=== PATIENT | male | born 1980 | race Asian ===

== ENCOUNTER 2017-06-06 09:00 | Emergency (ER) | payer SELFPAY ==
[2017-06-06 09:10] VITALS: BP 125/69
[2017-06-06] MEDS ORDERED: HYDROcodone/ACETAMIN 5-325 MG* 1 TAB PO ONE (09:17)
--- NOTE | 2017-06-06 09:57 | UC ---
Hip/Pelvis Pain - HPI Summary HPI Summary: has been running daily (about 5 miles) for the past 4 days he has had worsening left hip pain--difficult to weight bear - History Of Current Complaint Chief Complaint: UCLowerExtremity Stated Complaint: HIP INJURY Time Seen by Provider: 06/06/17 09:13 Hx Obtained From: Patient Mechanism Of Injury: repeatitive stress Onset/Duration: Gradual Onset, Lasting Days - 4, Still Present Timing: Constant Severity Initially: Moderate Severity Currently: Moderate Pain Intensity: 8 Pain Scale Used: 0-10 Numeric Location: Discrete At: - left hip Character Of Pain: Aching, Throbbing Aggravating Factor(s): Movement, Weight Bearing Alleviating Factor(s): Nothing Associated Signs And Symptoms: Positive: Negative - Allergies/Home Medications Allergies/Adverse Reactions: Allergies Allergy/AdvReac Type Severity Reaction Status Date / Time No Known Allergies Allergy Verified 06/06/17 09:10 PMH/Surg Hx/FS Hx/Imm Hx Previously Healthy: No - herion overdose,respiratory failure - Surgical History Surgical History: None - Family History Known Family History: Positive: Unknown, Hypertension - Father, Diabetes - Father Negative: Cardiac Disease - Social History Occupation: Unemployed Lives: With Family Alcohol Use: None Substance Use Type: Heroin Substance Use Comment - Amount & Last Used: past user, 2 years clean Smoking Status (MU): Heavy Every Day Tobacco Smoker Type: Cigarettes Amount Used/How Often: 1/2 ppd Length of Time of Smoking/Using Tobacco: since age 18 Cessation Counseling: Patient Advised to Stop - Immunization History Most Recent Influenza Vaccination: none Most Recent Tetanus Shot: unknown Most Recent Pneumonia Vaccination: none Review of Systems Constitutional: Negative Skin: Negative Eyes: Negative ENT: Negative Respiratory: Negative Cardiovascular: Negative Gastrointestinal: Negative Genitourinary: Negative Motor: Negative Neurovascular: Negative Musculoskeletal: Arthralgia - left hip Neurological: Negative Psychological: Negative All Other Systems Reviewed And Are Negative: Yes Physical Exam Triage Information Reviewed: Yes Appearance: Well-Appearing, Well-Nourished, Pain Distress Vital Signs: Initial Vital Signs Temp 99.5 F 06/06/17 09:04 Pulse 59 06/06/17 09:04 Resp 14 06/06/17 09:04 BP 125/69 06/06/17 09:04 Pulse Ox 98 06/06/17 09:04 Vital Signs Reviewed: Yes Eye Exam: Normal Eyes: Positive: Conjunctiva Clear ENT Exam: Normal ENT: Positive: Normal ENT inspection, Hearing grossly normal. Negative: Nasal congestion, Nasal drainage, Trismus, Muffled/hoarse voice Dental Exam: Normal Neck exam: Normal Neck: Positive: Supple, Nontender, No Lymphadenopathy Respiratory Exam: Normal Respiratory: Positive: Chest non-tender, Lungs clear, Normal breath sounds, No respiratory distress, No accessory muscle use Cardiovascular Exam: Normal Cardiovascular: Positive: RRR, No Murmur, Pulses Normal, Brisk Capillary Refill Musculoskeletal Exam: Normal Musculoskeletal: Positive: Strength Limited @ - left leg Neurological Exam: Normal Neurological: Positive: Alert, Muscle Tone Normal Psychological Exam: Normal Psychological: Positive: Normal Response To Family, Age Appropriate Behavior Skin Exam: Normal Diagnostics - Radiology No standard instances Xray Interpretation: No Acute Changes Radiology Interpretation Completed By: Radiologist Hip Injury Course/Dx - Course Course Of Treatment: Crutches, Nsaids, Physical therapy, sports medicine this week, refil MDI Albuterol - Differential Dx/Diagnosis Differential Diagnosis/HQI/PQRI: Bursitis, Infection, Sciatica, Sprain, Strain Provider Diagnoses: Left hip bursitis, mild intermittent asthma Discharge - Discharge Plan Condition: Stable Disposition: HOME Prescriptions: Albuterol HFA INHALER* [Ventolin HFA Inhaler*] 2 puff INH Q4H PRN #1 mdi PRN Reason: cough, wheeze, sob Ibuprofen TAB* [Motrin TAB* 600 MG] 600 mg PO Q6H PRN #30 tab PRN Reason: pain Patient Education Materials: How to Stop Smoking (ED), Crutch Instructions (ED) , Hip Bursitis (ED) Referrals: Francisca Humphries MD [Medical Doctor] - 5 Days
--- NOTE | 2017-06-06 10:10 | RAD ---
INDICATION: Left hip pain. COMPARISON: There are no prior studies available for comparison. TECHNIQUE: An AP view of the pelvis and frontal and lateral views of the left hip were obtained. FINDINGS: The bones are in normal alignment. No fracture is seen. There is mild bilateral osteoarthritic change in the hips. IMPRESSION: MILD BILATERAL OSTEOARTHRITIC CHANGE IN THE HIPS.
== END 2017-06-06 10:55 | disposition home or self-care (01) ==
LOC: UCEAST 09:00
DX: M70.72 Other bursitis of hip, left hip (principal); Y93.02 Activity, running
CPT/HCPCS: 99213; G0463

== ENCOUNTER 2017-06-26 14:27 | Observation (INO) | payer OTHER ==
--- NOTE | 2017-06-26 03:43 | HP ---
PREOPERATIVE HISTORY AND PHYSICAL DATE OF ADMISSION/SURGERY: 06/26/2017 DATE OF OFFICE VISIT: 06/25/2017 ATTENDING SURGEON: Chele Huynh MD * (DICTATED BY YENNY MATIAS) PROCEDURE: Left hip percutaneous pinning. CHIEF COMPLAINT: Left hip pain. HISTORY OF PRESENT ILLNESS: Mr. Barrientos is a 36-year-old male who presents to the clinic with left hip femoral neck stress fracture. He is having pain in his left hip for 1 month that started when he began running again. He was running and sprained his ankle; therefore, changed the gait of his left hip for several weeks. He was seen at [facility] where x-rays were performed and revealed no fracture. He was diagnosed with bursitis. He then went to [facility] and had significant increase in pain with walking all day. He was seen by Dr. Humphries where x-rays revealed a stress fracture. He is taking oxycodone 5 mg 2 pills 3x a day for the pain. He reports an 8 out of 10 constant aching pain deep in the hip. He has been nonweightbearing with use of crutches. The pain is worse with weightbearing or turning of the leg. He reports no prior injury to the hip. He denies numbness, tingling, fever or chills. PAST MEDICAL HISTORY: Diabetes type 2, anxiety, depression, PTSD and history of drug and alcohol abuse. PAST SURGICAL HISTORY: No prior surgeries. MEDICATIONS: 1. Duloxetine 60 mg 1 by mouth every day. 2. Oxycodone 5 mg every 4 to 6 hours as needed. 3. Alprazolam 1 mg 1 by mouth 1 hour before procedures. ALLERGIES: No known drug allergies. FAMILY HISTORY: Positive for diabetes on the paternal side and stroke. SOCIAL HISTORY: He lives with his parents. He is currently is not working. He reports current tobacco use 1/2 pack per day x15 years. He denies alcohol consumption. He exercises regularly. He is right hand dominant. REVIEW OF SYSTEMS: Denies fevers, chills, or night sweats. No known anesthesia problems. HEENT: Negative for headache, lightheadedness, or syncopal episodes. Integumentary: Negative for abrasions, lesions, or open wounds. Cardiothoracic: Negative for chest pain, palpitations or edema. Negative for hypertension. Pulmonary: Negative for shortness of breath with exertion, chronic cough, or COPD. GI: Negative for nausea, vomiting, diarrhea, constipation, or GERD. : Negative for nocturia, history of UTIs or kidney problems. Musculoskeletal: Positive for the current complaint. Neuro: Negative for numbness, tingling, history of seizure, stroke, or epilepsy. Endocrine: Positive for diabetes. Denies thyroid issues. Heme: Negative for easy bruising, history of bleeding disorder, history of DVT or PE. Infectious Disease: Negative for history of MRSA, hep C, or HIV. PHYSICAL EXAMINATION GENERAL: Well-developed, well-nourished, 36-year-old male, in no acute distress. Alert and oriented x3. Appropriate mood and affect. VITAL SIGNS: Height 66, weight 173 pounds, pulse 74, blood pressure 138/90, temperature 97.9, BMI 27.9. HEENT: Normocephalic, atraumatic. PERRLA. Throat: Clear. NECK: Supple. PULMONARY: Lungs are clear to auscultation bilaterally. No wheezing, rhonchi, or rales. CARDIO: Regular rate and rhythm. S1, S2. No murmurs, gallops or rubs. No edema. ABDOMEN: Positive bowel sounds, soft, and nontender. NEURO: Alert and oriented x3. Cranial nerves grossly intact. Sensation is intact to light touch. MUSCULOSKELETAL: Left Lower Extremity: Unable to weight bear on the left lower extremity, uses crutches for assistance with ambulation. The skin is intact. No warmth or erythema, or ecchymosis. The hip is nontender to palpation. He is able to flex the hip to 90 degrees without pain. Pain with internal and external rotation. The calf is soft, nontender, full pain free range of motion of the knee. 5/5 strength in dorsiflexion, plantar flexion. +2 dorsalis pedis pulses. Sensation intact to light touch distally. Right Lower Extremity: Skin is intact with no warmth or erythema. Nontender to palpation. Full pain free range of motion of the hip. +2 dorsalis pedis pulses. Sensation intact to light touch distally. DIAGNOSTIC STUDIES: Multiple-view x-rays of the left hip reveal a minimally displaced left femoral neck stress fracture. IMPRESSION: Left femoral neck stress fracture. PLAN: The patient is scheduled to undergo a left hip percutaneous pinning with Dr. Huynh on 06/26/17. Risks of surgery to include infection, bleeding, need for further surgery such as hardware removal, blood clots, scar thickness, continued pain, and osteonecrosis, and risks of anesthesia were discussed with the patient. The patient has agreed to undergo the procedure. He will return to the office in 10 to 14 days for postop followup and suture removal. Percocet will be used for postop pain management. YENNY MATIAS [id number]/[facility] #: [id number] CHRISTOS
[~2017-06-26 14:27] MED LIST: Buffered Lidocaine 0.9% SYRIN* 5 ML/SYR SYRINGE ONE
[2017-06-26] MEDS ORDERED: Dexamethasone IV* 4 MG/ML 1 ML (4 MG) ONE (14:29)
[2017-06-26] MEDS ORDERED: Famotidine IV* 10 MG/ML 2 ML (20 mg) ONE (14:29)
[2017-06-26] MEDS ORDERED: Dexamethasone IV* 4 MG/ML 1 ML (4 MG) IV SLOW PU ONE (14:33)
[2017-06-26] MEDS ORDERED: Famotidine IV* 10 MG/ML 2 ML (20 mg) IV ONE (14:33)
[2017-06-26] MEDS ORDERED: Buffered Lidocaine 0.9% SYRIN* 5 ML/SYR SYRINGE INTRADERM ONE (14:33)
[2017-06-26] MEDS ORDERED: ceFAZolin 2 GM PREMIX (*) 50 ML IVPB ONE (14:45)
[2017-06-26] MEDS ORDERED: Midazolam* 1 MG/ML 5 ML VIAL (5 MG) ONE ×2 (14:46→15:00)
[2017-06-26] MEDS ORDERED: fentaNYL* 50 MCG/ML 2 ML VIAL (100 MCG VIAL) ONE (14:46)
[2017-06-26] MEDS ORDERED: HYDROmorphone INJ* 1 MG/ML CARPUJECT SYRINGE IV PRN (14:51)
[2017-06-26] MEDS ORDERED: Ondansetron INJ* 2 MG/ML VIAL IV PRN ×2 (14:51→17:45)
[2017-06-26] MEDS ORDERED: Chloroprocaine 2%* 20 ML VIAL ONE (14:59)
[2017-06-26] MEDS ORDERED: Bupivacaine 0.25% SDV* 30 ML ONE (15:43)
[2017-06-26] MEDS ORDERED: Propofol* 10 MG/ML 20 ML BTL IV PUSH ONE (16:39)
[2017-06-26] MEDS ORDERED: Atracurium* 10 MG/ML 10 ML VIAL ONE (16:39)
[2017-06-26] MEDS ORDERED: fentaNYL* 50 MCG/ML 5 ML VIAL (250 MCG VIAL) ONE ×2 (16:50→18:33)
[2017-06-26] MEDS ORDERED: Glycopyrrolate IV* 0.2 MG/ML 1 ML VIAL ONE (17:00)
[2017-06-26] MEDS ORDERED: Atropine 1MG/ML INJ* 1 ML VIAL ONE (17:15)
[2017-06-26] MEDS ORDERED: EPHEDrine (Pressors)* 50 MG/ML VIAL ONE (17:15)
[2017-06-26] MEDS ORDERED: Levalbuterol HFA INHALER* 1 PUFF MDI ONE (17:27)
[2017-06-26] MEDS ORDERED: oxyCODONE/Acetamin 5/325 MG* TAB PO PRN (17:45)
[2017-06-26] MEDS ORDERED: Polyethylene Glycol 3350* 17 GM PACKET PO PRN (17:45)
[2017-06-26] MEDS ORDERED: diPHENhydraMINE IV* 50 MG/ML 1 ml VIAL (BENADRYL) IV PRN (17:45)
[2017-06-26] MEDS ORDERED: Acetaminophen TAB* 325 MG PO PRN (17:45)
[2017-06-26] MEDS ORDERED: Albuterol HFA INHALER* 8 gm MDI INH PRN (17:51)
[2017-06-26] MEDS ORDERED: oxyCODONE/Acetamin 5/325 MG* TAB ONE (18:32)
[2017-06-26] MEDS ORDERED: Ondansetron INJ* 2 MG/ML VIAL ONE (18:33)
[2017-06-26] MEDS: oxyCODONE/Acetamin 5/325 MG* TAB PO PRN ×2 (18:34→18:35)
[2017-06-26] MEDS: fentaNYL* 50 MCG/ML 2 ML VIAL (100 MCG VIAL) IV PRN ×5 (18:38→19:25)
--- NOTE | 2017-06-26 19:43 | RAD ---
INDICATION: Operative reduction internal fixation of left femoral neck fracture. COMPARISON: Comparison is made with a prior x-ray study of the left hip from June 25, 2017. TECHNIQUE: 197 seconds of intermitted fluoroscopic were provided and 3 spot films of the left hip were obtained in the operating room. FINDINGS: There is placement of an intramedullary ivette and femoral head nail transversing the fracture at the base of the femoral neck. The bones are in normal alignment. IMPRESSION: INTRAOPERATIVE CONTROL FILMS. CPT II Codes: 6045F
[2017-06-26] MEDS: oxyCODONE TAB* 5 MG TAB PO PRN (20:57)
[2017-06-26] MEDS: Morphine INJ* 2 MG/ML 1 ML CARPUJECT IV PRN (23:02)
[2017-06-27] MEDS: ceFAZolin 1 GM VIAL(*) 1 GM in NS 0.9% 50 ML* 50 ML IVPB SCH ×3 (00:03→16:41)
[2017-06-27] MEDS: oxyCODONE/Acetamin 5/325 MG* TAB PO PRN ×2 (00:03→09:03)
[2017-06-27] MEDS: oxyCODONE TAB* 5 MG TAB PO PRN ×3 (05:04→17:36)
[2017-06-27] MEDS: Morphine INJ* 2 MG/ML 1 ML CARPUJECT IV PRN ×2 (06:04→10:58)
[2017-06-27 06:22] LABS: Hematocrit 38 % (42-52)
[2017-06-27 06:41] LABS: Calcium 9.1 mg/dL (8.6-10.3); EGFR African American 122.8 (>60); EGFR Non-African American 95.5 (>60); Potassium 4.2 mmol/L (3.5-5.0)
[2017-06-27] MEDS: DULoxetine DR CAP* 60 MG CAP.DR PO SCH (09:03)
[2017-06-27] MEDS: ALPRAZolam TAB* 0.5 MG PO PRN ×2 (09:07→21:45)
--- NOTE | 2017-06-27 12:32 | PN ---
Progress Note - Progress Note Date of Service: 06/27/17 SOAP: Subjective: seen at 7 am Pt doing well although requiring IV pain meds. Hip pain calming down and feels more superficial. Denies numbness or tingling. no SOB, CP. Parents at bedside Objective: Temp Pulse Resp BP Pulse Ox 98.2 F 101 16 131/73 96 06/27/17 07:32 06/27/17 07:32 06/27/17 10:58 06/27/17 07:32 06/27/17 08:10 NAD. left hip dressing in place. Calf soft, nontender, able to flex hip to 45 degrees. SILT 1st dws, medial, lateral, dorsal, and plantar foot. 2+ PT pulse. Laboratory Results - last 24 hr 06/27/17 06/27/17 05:46 05:46 Hgb 13.0 L Hct 38 L Sodium 136 Potassium 4.2 Chloride 102 Carbon Dioxide 28 Anion Gap 6 BUN 18 Creatinine 0.90 Est GFR ( Amer) 122.8 Est GFR (Non-Af Amer) 95.5 BUN/Creatinine Ratio 20.0 Glucose 248 H Calcium 9.1 Assessment: POD#1 from L hip IMN Plan: Doing well. NWB PT/OT- mobilize lovenox for dvt ppx, SCDs transition to oral pain meds. labs reviewed dressing change tomorrow likely d/c tomorrow
[2017-06-27] MEDS: Nicotine PATCH 21 MG/24 HR* PATCH TRANSDERM SCH (13:23)
[2017-06-27] MEDS ORDERED: Enoxaparin(*) 40 MG/0.4 ML SYR SUBCUT SCH (18:00)
[2017-06-27] MEDS ORDERED: oxyCODONE TAB* 5 MG TAB PO PRN ×3 (19:30)
[2017-06-27] MEDS ORDERED: oxyCODONE TAB* 5 MG TAB ONE (19:40)
[2017-06-27] MEDS ORDERED: Nicotine Patch Removal NOTE PATCH OFF SCH (21:00)
[2017-06-27] MEDS: Acetaminophen TAB* 325 MG PO SCH (21:41)
[2017-06-27] MEDS: Ibuprofen TAB* 600 MG PO SCH (21:41)
[2017-06-28] MEDS: Acetaminophen TAB* 325 MG PO SCH (05:15)
[2017-06-28] MEDS: Ibuprofen TAB* 600 MG PO SCH (05:15)
[2017-06-28 05:27] LABS: Hematocrit 33 % (42-52); Mean Platelet Volume 7 um3 (7.4-10.4)
--- NOTE | 2017-06-28 08:22 | PN ---
Progress Note - Progress Note Date of Service: 06/28/17 SOAP: Subjective: 36 y/o male s/p L hip perc. pinning 06/[address] Huynh. Patient reports feeling well, aware of non-weight bearing status, eager for D/C home, pain managed well. VSS overnight, afebrile. Objective: General- Sitting comfortably in bed, NAD, AO MSK- Surgical dressing removed from Left hip, incision intact, minimal bloody drainage noted from superior incision, no redness, minimal ecchymosis noted, mild tenderness. redressed. + DF/ PF b/l, PT 2+, mild edema L thigh, minimal L ankle, sensation grossly intact to light touch. Vital Signs Temp 97.9 F 06/28/17 03:49 Pulse 72 06/28/17 03:49 Resp 16 06/28/17 03:53 BP 110/66 06/28/17 03:49 Pulse Ox 98 06/28/17 03:49 Intake & Output 06/27/17 06/28/17 06/28/17 18:59 06:59 18:59 Intake Total 1210 1620 Output Total 500 1400 Balance 710 220 Intake: IV Fluids 542 ABX - CEFAZOLIN 55 LR 432 Oral 668 1620 Output: Urine 500 1400 Other: # Bowel Movements 0 Laboratory Results - last 24 hr 06/28/17 05:06 Hgb 11.0 L Hct 33 L Plt Count 268 MPV 7 L Assessment: Stable 36 y/o male s/p L hip perc. pinning 06/[address] Huynh. Plan: - DVT prophylaxis- Lovenox in house, ASA 325mg daily as outpatient - NOn-weight bearing LLE - Outpatient PT script written - Pain medications: oxycodone 5-15mg every 4 hours - Follow up with Dr. Huynh within 10-14 days for staple removal Active Medications Generic Name Dose Route Start Last Admin Trade Name Freq PRN Reason Stop Dose Admin Acetaminophen 650 mg 06/26/17 17:45 Tylenol Tab* PO Q4H PRN PAIN OR TEMPERATURE Acetaminophen 975 mg 06/27/17 22:00 06/28/17 05:15 Tylenol Tab* PO 975 mg Q8HR YEYO Administration Albuterol 2 puff 06/26/17 17:51 Ventolin Hfa Inhaler* INH Q4H PRN cough, wheeze, sob Alprazolam 0.5 mg 06/26/17 17:51 06/27/17 21:45 Xanax Tab* PO 0.5 mg BID PRN Administration ANXIETY Diphenhydramine HCl 25 mg 06/26/17 17:45 Benadryl Iv* IV Q6H PRN itching or sleep Duloxetine HCl 60 mg 06/27/17 09:00 06/27/17 09:03 Cymbalta Cap* PO 60 mg DAILY YEYO Administration Enoxaparin Sodium 40 mg 06/27/17 18:00 06/27/17 17:37 Lovenox(*) SUBCUT 40 mg Q24H YEYO Administration Lactated Ringer's 1,000 mls @ 100 mls/hr 06/26/17 18:00 06/27/17 06:05 Lactated Ringers 1000 Ml Bag* IV 100 mls/hr PER RATE YEYO Administration Ibuprofen 600 mg 06/27/17 22:00 06/28/17 05:15 Motrin Tab* PO 600 mg Q8HR YEYO Administration Morphine Sulfate 2 mg 06/26/17 17:45 06/27/17 10:58 Morphine Inj (Syringe)* IV 2 mg Q2H PRN Administration PAIN - SEVERE Nicotine 1 patch 06/27/17 11:00 06/27/17 13:23 Nicotine Patch 21 Mg/24 Hr* TRANSDERM 1 patch DAILY YEYO Administration Ondansetron HCl 4 mg 06/26/17 17:45 Zofran Inj* IV Q6H PRN nausea Oxycodone HCl 5 mg 06/27/17 19:30 Roxycodone Tab* PO Q3H PRN PAIN MILD Oxycodone HCl 10 mg 06/27/17 19:30 06/28/17 03:53 Roxycodone Tab* PO 10 mg Q3H PRN Administration PAIN MODERATE Oxycodone HCl 15 mg 06/27/17 19:30 Roxycodone Tab* PO Q3H PRN PAIN SEVERE Pharmacy Profile Note 1 note 06/27/17 21:00 06/27/17 23:00 Nicotine Patch Removal Note* PATCH OFF 1 note 2100 YEYO Administration Polyethylene Glycol/Electrolytes 17 gm 06/26/17 17:45 06/27/17 21:46 Miralax* PO 17 gm DAILY PRN Administration Constipation <MiguelGely - Last Filed: 06/28/17 09:44> - Progress Note SOAP: Subjective: [] Objective: [] Assessment: [] Plan: [] <Chele Huynh - Last Filed: 06/28/17 15:09> H&P (Free Text) History and Physical: attending addendum pt seen an examined at 7:00 this morning. date of service 06/28/17 doing well. pain controlled with new change in oral medication. denies numbness and tingling. per nursing was not compliant with nwb. denies fevers,c hills, sob , cp NAD. AAOx3. dressing clean and intact. calf soft, nontender, about to flex/ext hip, knee, ankle. SILT distally. 2+ PT pulse A/P POD#2 pain controlled with d/c today NWB for 4 weeks f/u 2 weeks with me <Chele Huynh - Last Filed: 06/28/17 15:09>
[2017-06-28] MEDS: DULoxetine DR CAP* 60 MG CAP.DR PO SCH (08:46)
[2017-06-28] MEDS: Nicotine PATCH 21 MG/24 HR* PATCH TRANSDERM SCH (08:46)
[2017-06-28] MEDS: ALPRAZolam TAB* 0.5 MG PO PRN (11:14)
[2017-06-28 12:19] VITALS: BP 134/76
--- NOTE | 2017-06-28 15:33 | DS ---
DISCHARGE SUMMARY: DATE OF ADMISSION: 06/26/17 DATE OF DISCHARGE: 06/28/17 PROVIDER: Dr. Huynh * (DICTATED BY YENNY PIERSON) CHIEF COMPLAINT: 1. Left hip pain with minimally displaced left femoral neck stress fracture. 2. Diabetes type 2. 3. Anxiety. 4. Depression. 5. PTSD. 6. History of drug and alcohol use. DISCHARGE DIAGNOSES: 1. Status post left hip percutaneous pinning. 2. Diabetes type 2. 3. Anxiety. 4. Depression. 5. Posttraumatic stress disorder. 6. History of drug and alcohol abuse. PROCEDURE: Left hip percutaneous pinning. CONSULTATIONS: 1. Physical Therapy. 2. Occupational Therapy. BRIEF HISTORY: Mr. Barrientos is a very pleasant 36-year-old gentleman with a one- month history of hip pain, who was found to have a left hip femoral neck stress fracture and underwent percutaneous pinning by Dr. Huynh on 06/26/17. HOSPITAL COURSE: Mr. Barrientos was admitted on 06/26/[address] Huynh, where he underwent a left hip intramedullary nailing. On postoperative day 1, his Conteh was removed and the patient was voiding on his own without difficulty. He was advanced to a regular diet and his pain was controlled with p.o. oxycodone. He was restarted on his home medications. His labs and vital signs remained stable. He was non-weightbearing on his left lower extremity and advanced appropriately with physical therapy and occupational therapy. His DVT prophylaxis was managed in- house with Lovenox. On postoperative day 2, he was orthopedically and medically stable for discharge to go home with home services. PHYSICAL EXAMINATION: General: The patient is alert and oriented, resting in bed comfortably, in no acute distress. Vital Signs: Temperature 97.6, pulse rate 70, oxygenation 100% on room air, respiratory rate 17, blood pressure 115/ 69. Examination of the left lower extremity shows a surgical incision in the left hip, which has a minimal bloody drainage with all deangelo intact. No signs of erythema. Minimally tender to touch. Moderate edema and positive dorsiflexion and plantar flexion bilateral lower extremities. Posterior tibial pulses 2+ bilaterally. Negative Homans sign bilaterally. Sensation intact to light touch bilateral lower extremities. LABORATORY DATA: On date of discharge; H and H of 11 and 33. RADIOGRAPHS: Postoperative films taken 06/26/17 show placement of an intramedullary ivette and femoral head nail transversing the fracture at the base of the femoral neck. DISCHARGE MEDICATIONS: 1. Xanax 0.5 mg p.o. b.i.d. p.r.n. 2. Tylenol 650 mg q.4 hours p.r.n. pain, not to exceed 4000 mg in a 24-hour period. 3. Albuterol 2 puffs inhalation q.4 hours p.r.n. 4. Cymbalta 60 mg daily. 5. Ibuprofen 600 mg q.8 hours p.r.n. pain. 6. Oxycodone 5 to 15 mg p.o. q.4 hours for pain. 7. Aspirin 325 mg 1 tablet p.o. daily. CONDITION ON DISCHARGE: Stable. DISCHARGE INSTRUCTIONS: Mr. Barrientos is a very pleasant 36-year-old gentleman status post intramedullary nailing of a left stress fracture of the hip, which is uncomplicated. He is orthopedically and medically stable for discharge to go home with home services. His labs and vital signs are stable. He will restart his home medications. He will take aspirin 325 mg p.o. daily for DVT prophylaxis at home. He will have outpatient physical therapy and a script was sent for the patient to [facility]. He will remain non-weightbearing until followup with Dr. Huynh and is cleared by Dr. Huynh. He will follow up in approximately 12 days for suture removal and postoperative check. He was instructed to go immediately to the ER should he develop chest pain or shortness of breath. If he develops fever, increasing pain, or redness around the incision, he is to call the office immediately. YENNY PIERSON [id number]/[facility] #: [id number] CHRISTOS
--- NOTE | 2017-07-07 12:34 | OP ---
CC: Primary Care Physician OPERATIVE REPORT: DATE OF OPERATION: 06/26/17 DATE OF : 80 SURGEON: Chele Huynh MD. ASSISTANTS: YENNY Mackenzie and YENNY Sofia ANESTHESIOLOGIST: Dr. Duncan. ANESTHESIA: General. PRE-OP DIAGNOSIS: Left hip femoral neck stress fracture. POST-OP DIAGNOSIS: Left hip femoral neck stress fracture with extension into the intertrochanteric area. OPERATIVE PROCEDURE: Left hip TFN. Please add a #22 modifier due to the complexity of the case. Initially, this was going to be a left hip cannulated screw. COMPLICATIONS: The patient initially was planned for cannulated screws and as the screws were being placed, it was found that the lateral wall had actually fractured. This was not as obvious on the preoperative films, but the screws were unable to hold along the lateral wall. At this point, it was determined that the fracture had an intertrochanteric extension and was converted to a TFN. IMPLANTS: Synthes short nail TFN with the appropriate interlocking bolt and screws. DISPOSITION: Stable. ESTIMATED BLOOD LOSS: 200. INDICATIONS: Patrick Barrientos is a 36-year-old male who has had left hip pain for several weeks. He was recently exercising significantly with running, started having left hip pain for about a month. He initially thought he had changed his hip gait and that was part of what was going on. He was diagnosed with bursitis at [facility], then he went to [facility] where he walked a significant amount of time, then followed up a few days later with Dr. Humphries , and x-rays revealed the stress fracture on the tension side. He was placed on pain medication and nonweightbearing. He followed up in our office. We discussed the risks and benefits of operative versus nonoperative treatment, and he has elected to proceed with operative treatment. Risks included but are not limited to bleeding, infection, damage to nerves, vessels, surrounding structures, wound nonhealing, persistent pain, need for further surgery, scarring, stiffness, incomplete relief of symptoms, failure of hardware, nonunion, malunion, need for further surgery, risk of arthritis, and risk of anesthesia. DESCRIPTION OF PROCEDURE: The patient was greeted in the preoperative area by the attending surgeon. Correct extremity was marked and consent was confirmed. The patient was brought back to the operating suite where he was placed in supine position on the operating table. He then underwent general anesthesia and endotracheal intubation, after which the patient was appropriately positioned on the fracture table. A well-padded perineal post, the nonoperative extremity was placed in a well leg cano with an SCD well padded. The affected hip, the left hip was placed in a traction with gentle reduction maneuvers. Once he was appropriately secured and positioned and all bony prominences were padded, the x- ray was used to confirm the alignment of the fracture and there was no displacement on the AP and lateral views, after which the left hip was prepped and draped in usual sterile fashion. We began with chlorhexidine soap, scrub, and alcohol wipe and a final prep of ChloraPrep. After appropriate surgical pause indicating side, site, procedure, administration of antibiotics, the lateral incision was made distally. The IT band was split. The soft tissues were carefully dissected to expose the lateral aspect of the femur. At this point, the guidewires were then placed along the femoral neck. It was found that the bone was not as robust laterally and far more dense along the neck. Once the optimal position was obtained, the lateral cortex was perforated and the appropriate screws were placed. As the screws were being placed, it was found to collapse through the lateral cortex. At this point, the original x-rays were pulled up and with it magnified, it was demonstrated that there was a fracture line that went all the way to the lateral cortex. At this point, the cannulated screws were abandoned and then a TFN was begun. The previously placed screws and washers were removed. The instrumentation for the TFN was brought. An incision proximal to the greater trochanter was then made using a #10 blade. The soft tissues were carefully dissected. The guidewire was appropriately placed. Once it was confirmed on the AP and lateral views, a 16 mm starting reamer was then used to access the canal. The reamers were then sequentially done after the ball-tip guidewire was placed down the shaft. The reamers began with 8 mm and progressively filled out to 12.5 when chatter was encountered. At this point, once the reaming was complete, the short nail 11 mm in diameter was then placed under arthroscopic visualization. The lateral proximal interlocking bolt was then appropriately positioned and secured proximally. At this point, the distal interlock was then placed using the guide arm. Final images were obtained. The fracture was reduced and secured. The wounds were copiously irrigated with sterile saline. The wounds were closed in layers with 0 Vicryl for the fascia, 2-0 Vicryl for the subcutaneous tissues and deangelo. A 0.25% Marcaine plain was injected about the incision. The sterile dressings were applied. He was awoken from anesthesia and transferred to PACU in stable condition. POSTOPERATIVE PLAN: He will be nonweightbearing and eventually toe-touch weightbearing. He will receive 24 hours of postop antibiotics. He will be admitted for pain control and immobilization. DVT prophylaxis considered and he will be on Lovenox for 6 weeks postoperatively. I will see the patient back in 10 to 14 days. [id number]/[facility] #: [id number] [place]RIST[place]
== END 2017-06-28 12:20 | disposition home or self-care (01) ==
LOC: OR 14:27 → INTOOBSV 17:45 → SSU 17:45 → OBSVTOIN 17:50 → INTOOBSV 17:50 → SSU 06-27 20:05
PROVIDERS: ADMIT Orthopaedic Surgery; ATTEND Orthopaedic Surgery
DX: M84.359A Stress fracture, hip, unspecified, initial encounter for fracture (principal); Y93.02 Activity, running; E11.9 Type 2 diabetes mellitus without complications; F17.210 Nicotine dependence, cigarettes, uncomplicated; F41.8 Other specified anxiety disorders; F43.10 Post-traumatic stress disorder, unspecified; Z79.899 Other long term (current) drug therapy; Z87.898 Personal history of other specified conditions; F11.21 Opioid dependence, in remission
CPT/HCPCS: 36415; 76000; 80048; 85014; 85018; 85049; 94760; A9270-GY; C1713; C1776; G0378; G8978-GP-CI; G8979-GP-CI; G8980-GP-CI; J0461; J0690; J1100; J1650; J2250; J2270; J2400; J2405; J2704; J3010